=== PATIENT | female | born 1955 | race Caucasian/White ===

== ENCOUNTER 2020-11-30 05:32 | Day surgery (SDC) | payer OTHER, SELFPAY ==
[2020-11-23 07:53] VITALS: BMI 27.6
--- NOTE | 2020-11-30 | GASB_PTH ---
PATIENT: YOUNG SOARES LOC: EN U#:[id number] AGE/SX: 65/F ROOM: RE11/30/[address]: Dr. Efren Chen MD : 1955 BED: DIS: 11/30/2020 SPEC #: [id number] RECD: 11/30/20 11:32 STATUS: ANNY NARVAEZPete #: [id number] [place]: 11/30/20 00:[address]: Efren Chen DEPT: SURGICAL PATHOLOGY RECD BY: Rashad Walters ENTERED: 11/30/20 11:32 SP TYPE: Gastric Bx OTHR DR: Dr. Harriett Holland MD Tissues: A - Gastric mucous membrane B - Esophageal mucous membrane C - Esophageal mucous membrane D - Transverse colon Procedures: Special Stain Group I Surgery Specimen Level IV GMS Stain (control) HEADER OPERATION[place] [place] DIAGNOSIS: Positive colorectal cancer screening (Cologuard) TISSUE SUBMITTED: A - Antrum biopsy for H. pylori and path, B - Distal esophagus biopsy, C - Mid esophagus biopsy, D - Biopsy of distal transverse polyp MICROSCOPIC DIAGNOSIS A. Antrum, biopsy: Mild gastritis. See microscopic description and comment. B. Distal esophagus, biopsy: Fragments of squamous mucosa with focal ulceration, acute and chronic inflammation and granulation tissue reaction. See comment. C. Mid esophagus, biopsy: A fragment of squamous epithelium, no pathologic diagnosis. D. Distal transverse colon polyp, biopsy: Tubular adenoma. SJ:lanny 12/01/2020 COMMENT A. The results of immunohistochemistry for Helicobacter pylori will be reported separately ([id number]). B. Special stain for fungi is negative for organisms; matched control is appropriate. MICROSCOPIC DESCRIPTION Slides are reviewed. A. The specimen shows fragments of gastric mucosa with chronic inflammatory cell infiltrates in the lamina propria consisting of lymphocytes and plasma cells, consistent with mild chronic gastritis. GROSS DESCRIPTION A - Received in fixative is one container labeled with the patient's name and designated antrum biopsy. The specimen consists of one irregular fragment of light thomas soft tissue that measures 0.7 x 0.2 x 0.1 cm. The specimen is totally submitted in one cassette. B - Received in fixative is one container labeled with the patient's name and designated distal esophagus biopsy. The specimen consists of multiple irregular fragments of light thomas soft tissue that in aggregate measure 1 x 0.4 x 0.1 cm. The specimen is totally submitted in one cassette. C - Received in fixative is one container labeled with the patient's name and designated mid esophagus biopsy. The specimen consists of one irregular fragment of light thomas soft tissue that measures 0.4 x 0.4 x 0.1 cm. The specimen is totally submitted in one cassette. D - Received in fixative is one container labeled with the patient's name and designated biopsy distal transverse polyp. The specimen consists of one irregular fragment of light thomas soft tissue that measures 0.3 x 0.3 x 0.1 cm. The specimen is totally submitted in one cassette. / SJ:rg 11/30/20 TC:2 CPT: 23879 x4
[2020-11-30 06:04] VITALS: BP 151/97; PULSE 83; RESP 16; TEMP 36.8; O2SAT 97; BMI 27.1
[2020-11-30] MEDS: Lactated Ringers 1,000 ML 100 ML IV (06:10)
--- NOTE | 2020-11-30 06:19 | HP.PCM_ITS ---
History and Physical Date of Admission: 11/30/20 Intake Visit Reasons: CSCOPE, POSITIVE COLOGUARD Chief Complaint: positive cologuard Furniture Inspector Required: No Is patient in pain?: No Allergies No Known Allergies Allergy (Verified 11/23/20 07:54) Medications NK 11/23/20 [History Confirmed 11/23/20] Is last menstrual period known: No Post menopausal: Yes Patient : No PFSH Medical History (Updated 11/23/20 @ 08:[address] Efren Chen MD) GERD (gastroesophageal reflux disease) Osteoarthritis Surgical History (Updated 11/23/20 @ 07:51 by Lynn Mckeon) History of cholecystectomy Family History (Updated 11/23/20 @ 07:53 by Lynn Mckeon) Grandfather Heart disease Mother COPD (chronic obstructive pulmonary disease) Social History Smoking Status: Never smoker HPI HPI HPI: YOUNG SOARES, is a 65 F who presents to the office today for surgical consultation today. The patient is referred by Dr. Harriett Holland and a written copy my surgical consult recommendations were returned to her. The patient was urged by her daughter to seek routine medical evaluation and this included a Cologuard test which ended up being positive. The patient notes that she does have reasonably frequent reflux and heartburn. She does take Tums. She is not on any known anticoagulants but she does take oral supplements. This would include cayenne pepper and calcium. She is not sure where there is any anticoagulants associated with it. She has never had a colonoscopy. She has not noticed any bright red blood per rectum or melena. No change of weight other than slight increase over the past year. ROS General General: No weight change, appetite, fatigue, colon cancer, breast cancer or weakness HEENT HEENT: No difficulty swallowing, eye injury, eye surgery, swollen glands or hoarseness Endo Endocrine: No thyroid disease, diabetes mellitus, thyroid cancer, Hair loss, heat intolerance or cold intolerance Musc Musculoskeletal: Yes arthritis; No back problems, rheumatoid arthritis, gout or joint pain Cardio Cardiovascular: No murmur, pacemaker, heart disease, atrial fibrillation, high blood pressure, heart attack, heart stent, palpitations, shortness of breat with exertion or chest pain Psych Psychiatric: No depression, anxiety or hearing voices Resp Respiratory: No shortness of breath, No sleep apnea, No cough, No COPD, No asthma, No emphysema and No wheezing Gastro Gastrointestinal: No abdominal pain, No nausea or vomiting, No diarrhea, No constipation, No blood in stool, No acid reflux, No hemorrhoids, No ulcers, No gallbladder problem and No black,tarry stools [place]ud[place] Hematologic: No blood thinners, No blood disorders, No bleeding, No anemia and No blood clots Neuro Neurologic: No weakness Exam Const General: cooperative, healthy appearing, comfortable, no acute distress and well developed [facility] Head: normal to inspection Eyes General: appearance normal, both eyes and all related structures Resp Effort & Inspection: normal respiratory effort Auscultation: clear to auscultation bilaterally Cardio Rate: regular rate Rhythm: regular rhythm GI Palpation: soft and no hepatosplenomegaly Auscultation: normal bowel sounds Musc Cervical Spine: normal cervical lordosis Skin General: no rashes or lesions noted Neuro General: patient alert and patient awake Extrem General: no calf tenderness bilaterally Psych Affect: normal affect COVID (Procedure Consent) Procedure Criteria Procedure Criteria: Yes Elective The surgeon/proceduralist and patient have discussed in detail the risk of exposure to and/or potential harm posed by the COVID-19 virus with having a surgery/procedure at this time versus the risk of delaying the surgery/procedure. It is not possible to know either the risk of delaying the surgery or procedure or chance of getting an infection with perfect accuracy, but a joint decision was made between the patient and the surgeon/proceduralist to proceed at this time with the scheduled surgery/procedure as indicated on the consent form. Assessment and Plan Assessment and Plan (1) Positive colorectal cancer screening using Cologuard test: Status: Acute Plan Details Additional Comments: Cologuard positive. Symptoms that seem to correlate with gastroesophageal reflux disease. No personal history of colonoscopy. No family history of colon cancer. She does however use Tums for her abdominal discomfort. I recommend a esophagogastroduodenoscopy with possible biopsy and colonoscopy with possible biopsy or polypectomy as indicated. I have asked her to hold her supplements prior to the procedure. She is aware of the technique, benefit, risk, alternatives. She has had an opportunity to ask and have questions answered. We will schedule procedure at her discretion. I very much appreciate the kind opportunity of assisting with her surgical care. Copy: Dr. Harriett Chen M.D., F.A.C.S. I have re-examined the patient. There are no clinical changes since date of exam.
--- NOTE | 2020-11-30 06:30 | IMM_PTH ---
PATIENT: YOUNG SOARES LOC: EN U#:[id number] AGE/SX: 65/F ROOM: RE11/30/[address]: Dr. Efren Chen MD : 1955 BED: DIS: 11/30/2020 SPEC #: [id number] RECD: 11/30/20 12:25 STATUS: ANNY REQ #: [id number] [place]: 11/30/20 06:[address]: Efren Chen DEPT: IMMUNOHISTOCHEMISTRY RECD BY: Kanika Argueta ENTERED: 11/30/20 12:25 SP TYPE: IMMUNO OTHR DR: Dr. Harriett Holland MD Tissues: A - Stomach, NOS Procedures: H Pylori (initial) PHYSICIAN & INSTITUTION [place] [id number] SPECIMEN INFORMATION: Tissue Source: A ? Antrum biopsy Clinical Info: Positive colorectal cancer screening (Cologuard) Specimen Number: [id number] CPT code: 18423 METHODOLOGY: Deparaffinized sections of prefer/formalin-fixed tissue or PAP/DQ stained slides are incubated with monoclonal/polyclonal antibodies/oligonucleotide probes. Localization is made via biotin free immunoperoxidase method. Appropriate controls are performed and reacted as expected. Results on target cell population are indicated in the following table: RESULTS: ANTIBODY / CLONE RESULT Block A H Pylori (polyclonal) negative These tests were developed and their performance characteristics determined by [facility]. They may not have been cleared or approved by the U.S. Food and Drug Administration. The FDA has determined that such clearance or approval is not necessary. INTERPRETATION: A. Antrum biopsy: Negative for Helicobacter pylori organisms. SJ:lanny 12/01/2020
[2020-11-30 07:05] VITALS: BP 151/97; BP 92/53; PULSE 79; RESP 16; TEMP 35.9; O2SAT 97
--- NOTE | 2020-11-30 07:07 | OP.EGD_ITS ---
Patient Name: Ines Mora Procedure Date: 11/30/2020 6:07 AM Date of : 1955 Age: 65 Procedure: Upper GI endoscopy Indications: Cologuard positive Providers: Efren Chen MD Referring MD: Harriett Holland Medicines: See the Anesthesia note for documentation of the administered medications Complications: No immediate complications. Procedure: Pre-Anesthesia Assessment: - Prior to the procedure, a History and Physical was performed, and patient medications and allergies were reviewed. The patient's tolerance of previous anesthesia was also reviewed. The risks and benefits of the procedure and the sedation options and risks were discussed with the patient. All questions were answered, and informed consent was obtained. Prior Anticoagulants: The patient has taken no previous anticoagulant or antiplatelet agents. ASA Grade Assessment: II - A patient with mild systemic disease. After reviewing the risks and benefits, the patient was deemed in satisfactory condition to undergo the procedure. After obtaining informed consent, the endoscope was passed under direct vision. Throughout the procedure, the patient's blood pressure, pulse, and oxygen saturations were monitored continuously. The gastroscope was introduced through the mouth, and advanced to the second part of duodenum. The upper GI endoscopy was accomplished without difficulty. The patient tolerated the procedure well. Scope In: 6:34:04 AM Scope Out: 6:39:47 AM Total Procedure Duration Time 0 hours 5 minutes 43 seconds Findings: LA Grade A (one or more mucosal breaks less than 5 mm, not extending between tops of 2 mucosal folds) esophagitis with no bleeding was found 38 cm from the incisors. Biopsies were taken with a cold forceps for histology. The mid esophagus was normal. Biopsies were taken with a cold forceps for histology. A small hiatal hernia was present. Diffuse mildly erythematous mucosa without bleeding was found in the gastric antrum. Biopsies were taken with a cold forceps for histology. The examined duodenum was normal. Impression: - LA Grade A reflux esophagitis. Biopsied. - Normal mid esophagus. Biopsied. - Small hiatal hernia. - Erythematous mucosa in the antrum. Biopsied. - Normal examined duodenum. Recommendation: - Discharge patient to home. - Resume previous diet. - Continue present medications. - Await pathology results. - Use Prilosec (omeprazole) 20 mg PO daily. - Telephone my office for pathology results in 1 week. Procedure Code(s): --- Professional --- 28973, Esophagogastroduodenoscopy, flexible, transoral; with biopsy, single or multiple Diagnosis Code(s): --- Professional --- K21.0, Gastro-esophageal reflux disease with esophagitis K44.9, Diaphragmatic hernia without obstruction or gangrene K31.89, Other diseases of stomach and duodenum CPT copyright 2017 [employer]. All rights reserved. The codes documented in this report are preliminary and upon trombone slide assembler review may be revised to meet current compliance requirements. Efren Chen MD 11/30/2020 7:06:16 AM This report has been signed electronically. Number of Addenda: 0 Note Initiated On: 11/30/2020 6:07 AM
--- NOTE | 2020-11-30 07:07 | OP.CCLET_ITS ---
11/30/2020 Harriett Holland [place] [id number] [address] Re : Upper GI endoscopy procedure for Ines Mora Dear Dr. Holland This procedure was performed on Monday, November 30, 2020. My impressions and recommendations are as follows: Impressions : - LA Grade A reflux esophagitis. Biopsied. - Normal mid esophagus. Biopsied. - Small hiatal hernia. - Erythematous mucosa in the antrum. Biopsied. - Normal examined duodenum. Recommendations : - Discharge patient to home. - Resume previous diet. - Continue present medications. - Await pathology results. - Use Prilosec (omeprazole) 20 mg PO daily. - Telephone my office for pathology results in 1 week. My findings are described in the full procedure note, which is enclosed. If I can be of further assistance, please feel free to contact me at Doctor phone number(s): Work: . Sincerely, Efren Chen MD 11/30/2020 7:06:16 AM This report has been signed electronically.
--- NOTE | 2020-11-30 07:09 | OP.CCLET_ITS ---
11/30/2020 Harriett Holland [place] [id number] [address] Re : Colonoscopy procedure for Ines Mora Dear Dr. Holland This procedure was performed on Monday, November 30, 2020. My impressions and recommendations are as follows: Impressions : - Hemorrhoids found on perianal exam. - One 5 mm polyp in the distal transverse colon, removed with a cold biopsy forceps. Resected and retrieved. - The examination was otherwise normal. Recommendations : - Discharge patient to home. - Resume previous diet. - Continue present medications. - Repeat colonoscopy in 5 years for surveillance based on pathology results. - Telephone my office for pathology results in 1 week. My findings are described in the full procedure note, which is enclosed. If I can be of further assistance, please feel free to contact me at Doctor phone number(s): Work: . Sincerely, Efren Chen MD 11/30/2020 7:08:47 AM This report has been signed electronically.
--- NOTE | 2020-11-30 07:09 | OP.COLON_ITS ---
Patient Name: Ines Mora Procedure Date: 11/30/2020 6:40 AM Date of : 1955 Age: 65 Procedure: Colonoscopy Indications: Cologuard positive Providers: Efren Chen MD Referring MD: Harriett Holland Medicines: See the Anesthesia note for documentation of the administered medications Patient Profile: Last Colonoscopy: none. The patient's first colonoscopy is today. Complications: No immediate complications. Procedure: Pre-Anesthesia Assessment: - Prior to the procedure, a History and Physical was performed, and patient medications and allergies were reviewed. The patient's tolerance of previous anesthesia was also reviewed. The risks and benefits of the procedure and the sedation options and risks were discussed with the patient. All questions were answered, and informed consent was obtained. Prior Anticoagulants: The patient has taken no previous anticoagulant or antiplatelet agents. ASA Grade Assessment: II - A patient with mild systemic disease. After reviewing the risks and benefits, the patient was deemed in satisfactory condition to undergo the procedure. After I obtained informed consent, the scope was passed under direct vision. Throughout the procedure, the patient's blood pressure, pulse, and oxygen saturations were monitored continuously. The Colonoscope was introduced through the anus and advanced to the cecum, identified by appendiceal orifice and ileocecal valve. The colonoscopy was performed without difficulty. The patient tolerated the procedure well. The quality of the bowel preparation was good. The ileocecal valve and the appendiceal orifice were photographed. Scope In: 6:42:57 AM Scope Withdrawal Time 0 hours 7 minutes 58 seconds Scope Out: 7:00:43 AM Total Procedure Duration Time 0 hours 17 minutes 46 seconds Findings: Hemorrhoids were found on perianal exam. A 5 mm polyp was found in the distal transverse colon. The polyp was sessile. The polyp was removed with a cold biopsy forceps. Resection and retrieval were complete. The exam was otherwise without abnormality. Impression: - Hemorrhoids found on perianal exam. - One 5 mm polyp in the distal transverse colon, removed with a cold biopsy forceps. Resected and retrieved. - The examination was otherwise normal. Recommendation: - Discharge patient to home. - Resume previous diet. - Continue present medications. - Repeat colonoscopy in 5 years for surveillance based on pathology results. - Telephone my office for pathology results in 1 week. Procedure Code(s): --- Professional --- 02840, Colonoscopy, flexible; with biopsy, single or multiple Diagnosis Code(s): --- Professional --- K64.9, Unspecified hemorrhoids D12.3, Benign neoplasm of transverse colon (hepatic flexure or splenic flexure) CPT copyright 2017 [employer]. All rights reserved. The codes documented in this report are preliminary and upon drywall finisher foreman review may be revised to meet current compliance requirements. Efren Chen MD 11/30/2020 7:08:47 AM This report has been signed electronically. Number of Addenda: 0 Note Initiated On: 11/30/2020 6:40 AM
[2020-11-30 07:10] VITALS: BP 151/97; BP 86/64; PULSE 78; RESP 16; O2SAT 96
[2020-11-30 07:15] VITALS: BP 105/66; BP 151/97; PULSE 75; RESP 16; O2SAT 96
[2020-11-30 07:20] VITALS: BP 111/67; BP 151/97; PULSE 72; RESP 16; TEMP 35.9; O2SAT 98
[2020-11-30 08:00] VITALS: BP 151/97
== END 2020-11-30 08:10 | disposition home or self-care (01) ==
LOC: EN 05:33 → AC 05:35
PROVIDERS: PCP Family Medicine; Referring Provider Family Medicine; Visit Provider Surgery
PROC: 0DJD8ZZ Inspection of Lower Intestinal Tract, Via Natural or Artificial Opening Endoscopic (ICD-10-PCS; CPT 45378; principal; 2020-11-30 06:25)
DX: Z12.11 Encounter for screening for malignant neoplasm of colon (principal); K21.00 Gastro-esophageal reflux disease with esophagitis, without bleeding; K44.9 Diaphragmatic hernia without obstruction or gangrene; K31.89 Other diseases of stomach and duodenum; K64.9 Unspecified hemorrhoids; D12.3 Benign neoplasm of transverse colon; Z90.49 Acquired absence of other specified parts of digestive tract
CPT/HCPCS: 43239; 45380; 88305; 88312; 88342; J7120; J2405

== ENCOUNTER 2021-05-01 13:17 | Emergency (ER) | payer OTHER, SELFPAY ==
[2021-05-01 13:18] VITALS: BP 148/118; PULSE 84; RESP 22; TEMP 35.7; O2SAT 97; BMI 26.6
--- NOTE | 2021-05-01 14:01 | CT_ITS ---
STUDY: CT ABDOMEN AND PELVIS WITHOUT CONTRAST REASON FOR EXAM: Female, 66 years old. Left sided flank pain. RADIATION DOSAGE (If Supplied By Facility): CTDIvol = ( 8.45 ) mGy, DLP = ( 401.29 ) mGycm TECHNIQUE: Transaxial images were obtained from the dome of the diaphragm to the symphysis pubis without oral contrast, and without intravenous contrast. Sagittal and coronal images were reconstructed. Individualized dose optimization techniques were used for this CT. COMPARISON: None. FINDINGS: The visualized lung bases are unremarkable. The visualized portions of the heart are within normal limits. Prominence of the left lobe of the liver likely representing a normal variant. Calcification in the dome of the liver consistent with a granuloma. There is non-visualization of the gallbladder, which may be secondary to either contraction or a prior cholecystectomy. Small gallstones cannot be excluded. Normal spleen. Normal pancreas. Normal bilateral adrenal glands. Punctate nonobstructing stone in the right kidney measuring about 2 to 3 mm. Mild left hydronephrosis due to 6 mm in diameter and 7 mm in length stone in the proximal left ureter. There is a small hiatal hernia. Normal small intestine. Fecal retention. The descending colon is not well-distended. No evidence of acute diverticulitis. The appendix is visualized and appears normal. Tortuosity of the abdominal aorta without evidence of aneurysm. Normal inferior vena cava. Normal retroperitoneum. Normal urinary bladder. Normal abdominal wall. Narrowing of L5-S1 disc space with grade 1 anterolisthesis of L5 over S1 without evidence of spondylolysis. Degenerative changes. CT/Abdomen/Pelvis without Cont IMPRESSION: 1. Mild left hydronephrosis due to 6 x 7 mm stone in the proximal left ureter as described above. 2. Small punctate nonobstructing stone in the right kidney. Electronically Signed: Deangelo Bruno, at 14:46 EST Tel , Service support ,
--- NOTE | 2021-05-01 14:02 | EDS_ITS ---
HPI History of Present Illness Chief Complaint: Flank Pain Informant: patient Narrative Narrative: Patient started with abdominal pain about 11:00 this morning. She had no symptoms whatsoever prior to this. It started in the suprapubic area but then spread to the left lower quadrant and left flank. No change in urinalysis. When the pain is bad she gets nauseated but has not vomited. She has never had any symptoms like this before. No known history of kidney stones or diverticular disease. She has had a cholecystectomy in the past. Nothing specifically makes the pain better or worse. Denies chronic medical conditions Denies routine medications No allergies Surgeries cholecystectomy Lives with [facility] Medical History Alcohol use Back pain Blackout GERD (gastroesophageal reflux disease) Heartburn Non-smoker Restless legs Home Medications omeprazole 20 mg PO DAILY #90 cap 11/30/20 [Rx Last Taken Unknown] ondansetron 4 mg PO Q8H PRN #10 tab 05/01/21 [Rx Last Taken Unknown] oxycodone-acetaminophen [Percocet] 1 tab PO Q6H PRN 3 Days #12 tab 05/01/21 [Rx Last Taken Unknown] tamsulosin [Flomax] 0.4 mg PO DAILY #10 cap 05/01/21 [Rx Last Taken Unknown] Allergy/AdvReac Type Severity Reaction Status Date / Time No Known Allergies Allergy Verified 05/01/21 13:17 Family History Grandfather Heart disease Mother COPD (chronic obstructive pulmonary disease) Surgical History History of cholecystectomy Social History Smoking Status: Never smoker ROS ROS ED Constitutional Constitutional ED: Denies chills or fever(s) Eyes Eyes: Denies blurry vision ENT ENT ED: Denies rhinorrhea or sore throat Cardiovascular Cardiovascular: Denies chest pain Respiratory/Chest Respiratory/Chest: Denies cough, dyspnea or sputum Gastrointestinal Gastrointestinal: Reports abdominal pain and nausea; Denies constipation, diarrhea, melena or vomiting Genitourinary Genitourinary ED: Denies dysuria, hematuria or urinary frequency Musculoskeletal Musculoskeletal: Denies back pain or myalgias Integumentary Denies rash Neurologic Neurologic: Denies paresthesias or weakness Psychiatric Psychiatric: Denies depression Endocrine Endocrinology: Denies polydipsia or polyuria Allergic/Immunologic Allergic/Immunologic ED: Denies urticaria EXAM Physical Exam Const Vital Signs: 05/01/21 13:18 05/01/21 14:09 05/01/21 14:47 Temperature 96.2 F L Temperature Source Temporal Pulse Rate 84 77 80 Respiratory Rate 22 H 14 16 Blood Pressure 148/118 H 180/88 H 151/80 H Blood Pressure Mean 128 118 103 Pulse Ox 97 98 96 Oxygen Delivery Method Room Air Room Air Room Air Patient does look a little uncomfortable. She tends to be moving a little bit [id number] in bed. Positive well nourished and well developed General Appearance ED: well developed HEENT Reports moist mucous membranes Negative for trauma or tenderness Eyes General Eye ED: Negative for pale conjunctiva or scleral icterus Neck no JVD Chest Wall inspection of chest normal Resp normal respiratory effort and clear to auscultation bilaterally Auscultation: Negative for rales, rhonchi or wheezes Cardio regular rate and regular rhythm GI normal to inspection, nondistended, normoactive bowel sounds GI Narrative: Patient does have some tenderness toward the left lower quadrant but no rebound or guarding. I feel no mass. She does not have as much CVA tenderness though. Palpation: soft Back/Spine no CVA tenderness Extremity normal to inspection General Extremety ED: Negative for tenderness Neuro oriented x3 Sensorium / Orientation: alert Psych mental status grossly normal Skin no rashes or lesions noted and no wounds MDM MDM MDM Narrative Medical decision making narrative: Blood work showed normal CBC. Electrolytes show minimally decreased potassium. She also had very slight elevation of glucose at 159. Urine showed no sign of infection. CT scan showed a 6 x 7 mm stone in proximal left UVJ. Patient was given morphine initially. She is also given Zofran. She was still having pain. We gave her a second dose of morphine and Toradol. She still having discomfort and actually vomited again. I will add some Phenergan and Dilaudid to see if we get her pain under control. I would like to try to get her home. However, if I cannot get her pain under control and nausea under control she might need to be admitted for management. Lab Data Attestation: I reviewed the patient's lab results. Labs: Laboratory Results - last 24 hr 05/01/21 05/01/21 05/01/21 13:30 13:30 13:30 WBC 8.3 RBC 4.72 Hgb 14.6 Hct 43.2 MCV 91.5 MCH 30.9 MCHC 33.8 RDW Std Deviation 40.6 RDW Coeff of Darvin 12.1 Plt Count 276 MPV 9.9 Immature Gran % (Auto) 0.700 Neut % (Auto) 77.9 H Lymph % (Auto) 16.0 L Travis % (Auto) 4.2 Eos % (Auto) 0.7 Baso % (Auto) 0.5 Absolute Neuts (auto) 6.4 Absolute Lymphs (auto) 1.32 Nucleated RBC % 0 Sodium 140 Potassium 3.2 L Chloride 105 Carbon Dioxide 26.0 Anion Gap 9 BUN 11 Creatinine 0.78 Estim Creat Clear Calc 49.12 Est GFR (MDRD) Af Amer 95 Est GFR (MDRD) Non-Af 79 BUN/Creatinine Ratio 14.1 Glucose 159 H Calcium 9.2 Urine Color Yellow Urine Clarity Clear Urine pH 8.0 Ur Specific Watkins 1.015 Urine Protein 15 H Urine Glucose (UA) 50 H Urine Ketones Negative Urine Occult Blood 150 H Urine Nitrite Negative Urine Bilirubin Negative Urine Urobilinogen Normal Ur Leukocyte Esterase Negative Urine RBC 0-5 SEEN Urine WBC 0 SEEN Ur Squamous Epith Cells 0 SEEN Urine Bacteria 0 SEEN Urine Mucus 0 SEEN Radiography Diagnostic Testing: Clinical Impression(s) from Imaging Studies Abdomen/Pelvis CT 05/01/21 14:01 IMPRESSION: 1. Mild left hydronephrosis due to 6 x 7 mm stone in the proximal left ureter as described above. 2. Small punctate nonobstructing stone in the right kidney. Electronically Signed: Deangelo Bruno, at 14:46 EST Tel , Service support , Discharge Plan Triage Chief Complaint: Flank Pain ED Provider: Wang Arroyo Dx/Rx/DC Orders Clinical Impression: Kidney stone on left side Instructions: ED Kidney Stone w/ Colic Prescriptions: New oxycodone-acetaminophen [Percocet] 5-325 mg tablet 1 tab PO Q6H PRN (Reason: pain) 3 Days Qty: 12 RF: 0 ondansetron 4 mg tablet,disintegrating 4 mg PO Q8H PRN (Reason: nausea and vomiting) Qty: 10 RF: 0 tamsulosin [Flomax] 0.4 mg capsule 0.4 mg PO DAILY Qty: 10 RF: 0 No Action omeprazole 20 mg capsule,delayed release(DR/EC) 20 mg PO DAILY Qty: 90 RF: 0 Primary Care Provider: Harriett Holland Referrals: Harriett Holland MD [Primary Care Provider] - Delfina Jade MD [STAFF PHYSICIAN] - As soon as possible Disposition Disposition: Home, Self Care
[2021-05-01 14:06] LABS: Bacteria 0 SEEN /hpf (None Seen); Mucous, Urine 0 SEEN /hpf (<or=2+); Squamous Epithelial Cells - UA 0 SEEN /hpf (5-10); White Blood Cells 0 SEEN /hpf (0-5)
[2021-05-01 14:07] LABS: Absolute Lymphocyte Count 1.32 X10^3/uL (0.83-4.51); Absolute Neutrophil Count 6.4 X10^3/uL (2.0-7.7); Basophil# 0.04 X10^3/uL; Basophil% 0.5 % (0-1); Color, Urine Yellow (Yellow); Eosinophil# 0.06 X10^3/uL; Eosinophils% 0.7 % (0-5); Glucose, Dipstick 50 mg/dl (Normal); Hematocrit 43.2 % (37-47); Hemoglobin 14.6 g/dL (12.0-15.0); Ketone-Dipstick Negative (Negative); Leukocyte Esterase-Dipstick Negative /ul (Negative); Lymphocyte # 1.32 X10^3/ul (0.83-4.51); Mean Corp Hgb Conc 33.8 g/dL (32-36); Mean Corpuscular Hgb 30.9 pg (27.0-32.0); Mean Corpuscular Volume 91.5 fL (81-99); Mean Platelet Vol. 9.9 fl (6.2-12.0); Monocyte# 0.35 X10^3/uL; Monocyte% 4.2 % (0-10); NRBC Flagged by Analyzer 0 % (0-5); Neutrophil # 6.44 X10^3/uL (2.7-7.7); Neutrophil % 77.9 % (47-70); Nitrite-Dipstick Negative (Negative); Occult Blood-Urine 150 /ul (Negative); Platelet Count 276 K/mm3 (150-450); Protein-Dipstick 15 mg/dl (Negative); RBC Distribution Width CV 12.1 % (11.6-14.6); RBC Distribution Width SD 40.6 fl (35.1-43.9); Red Blood Count 4.72 M/mm3 (4.2-5.4); Specific Gravity, Urine 1.015 (1.002-1.030); Urine Bilirubin Dipstick Negative (Negative); Urine Clarity Clear (Clear); Urine Urobilinogen Normal (Normal); White Blood Count 8.3 K/mm3 (4.4-11.0)
[2021-05-01] MEDS: Morphine 4 MG/ML Syringe IV ×2 (14:07→15:01)
[2021-05-01] MEDS: Ondansetron 4 MG/2 ML Vial IV (14:07)
[2021-05-01] MEDS: 0.9% Normal Saline 1,000 ML 1000 ML IV (14:08)
[2021-05-01 14:09] VITALS: BP 180/88; PULSE 77; RESP 14; O2SAT 98
[2021-05-01 14:13] LABS: Red Blood Cells-Urine 0-5 SEEN /hpf (0-5)
[2021-05-01 14:19] LABS: Anion Gap 9 (5-15); BUN 11 mg/dL (7-18); BUN/Creat Ratio 14.1 RATIO (10-20); Calcium,Total 9.2 mg/dL (8.5-10.1); Chloride 105 mmol/L (98-107); Creatinine, Serum 0.78 mg/dL (0.55-1.02); EST Glomerular Filtration Rate 79 mL/min (>60); Est Glom Filt Rate - Afr Amer 95 mL/min (>60); Estimated Creatinine Clearance 49.12 ml/min; Glucose 159 mg/dL (74-106); Potassium 3.2 mmol/L (3.5-5.1); Sodium Level 140 mmol/L (136-145)
[2021-05-01 14:47] VITALS: BP 151/80; PULSE 80; RESP 16; O2SAT 96
[2021-05-01] MEDS: Ketorolac 15 MG/ML Vial IV (15:01)
[2021-05-01] MEDS: HYDROmorphone 0.5 MG/0.5 ML SYRINGE IV (15:47)
[2021-05-01] MEDS: proMETHazine 25 MG/ML Syringe 12.5 MG IM (15:47)
[2021-05-01 16:47] VITALS: O2SAT 96
== END 2021-05-01 16:50 | disposition home or self-care (01) ==
PROVIDERS: Emergency Provider Emergency Medicine; PCP Family Medicine
DX: N13.2 Hydronephrosis with renal and ureteral calculous obstruction (principal); K21.9 Gastro-esophageal reflux disease without esophagitis; Z90.49 Acquired absence of other specified parts of digestive tract
CPT/HCPCS: 74176; 80048; 81001; 85025; 96361; 96372; 96374; 96375; 96376; 99283; J7030; J7050; A4216; J2405

== ENCOUNTER → 2021-05-03 10:52 | Outpatient (CLI) | payer OTHER, SELFPAY ==
--- NOTE | 2021-05-03 11:00 | RAD_ITS ---
HISTORY: L STONE. TECHNIQUE: XR Abdomen 1 View. # of images incl. paperwork: 2. COMPARISON: CT 05/01/2021. FINDINGS: BOWEL GAS PATTERN: No dilated small bowel loops. Gaseous and stool distention of the colon. FREE AIR: Not assessed on supine view. CALCIFICATIONS: 5 mm ureteral calculus at the L4 level again noted. Left pelvic phlebolith again seen. OSSEOUS STRUCTURES: Unremarkable. RAD/Abdomen Single View IMPRESSION: Left ureteral calculus again seen. at 0820 Reported and signed by: Barbie Rodriguez MD Electronically Signed: Barbie Rodriguez MD at 8:19 EST Tel , Service support ,
== END ==
PROVIDERS: PCP Family Medicine; Referring Provider Urology; Visit Provider Urology
DX: N20.0 Calculus of kidney (principal)
CPT/HCPCS: 74018

== ENCOUNTER 2021-05-04 05:37 | Day surgery (SDC) | payer OTHER, SELFPAY ==
[2021-05-04 06:06] VITALS: BP 124/72; PULSE 91; RESP 18; TEMP 36.1; O2SAT 95; BMI 27.8
[2021-05-04] MEDS: Lactated Ringers 1,000 ML 15 ML IV (06:09)
--- NOTE | 2021-05-04 07:22 | PCM.OPRPT ---
Problems Associated Problem List Diagnoses (1) Ureteral calculus, left: (2) Hydronephrosis: Report of Operation Date of Procedure: 05/04/21 Pre-Operative Diagnosis: left ureteral calculus with hydronephrosis Post-Operative Diagnosis: same Surgery/Procedure Performed:: cystoscopy with left ureteral stent insertion, left extracorporeal shockwave lithotripsy Surgeon: Delfina Jade Type of Anesthesia: General Description of Procedure: The patient is a 66yo female evaluated and found to have a 7mm left proximal ureteral stone with hydronephrosis. She now presents for definitive surgical management. Informed consent was obtained. The patient was taken to the operating room and placed on the lithotriptor table. She was appropriately padded in dependent areas. Anesthesia monitored the head, neck, airway, IV access and vital signs throughout the case. Once anesthesia was appropriately administered, the patient was placed into dorsal lithotomy position and was prepped and draped in usual sterile fashion. The cystoscope was inserted through the urethra into the urinary bladder under direct visualization. The bladder mucosa was visualized in its entirety and was found to be without mass, erythema or other abnormality. The left ureteral orifice was identified and intubated with a 0.035 glidewire that was easily advanced to the renal pelvis as seen on fluoroscopy. The 6x26 JJ stent was placed over the wire with good positioning in the renal pelvis as well as the urinary bladder. The bladder was emptied and the cystoscope was removed. The patient was repositioned and the stone was easily seen in the ureter. Shocks were systematically applied to the stone and it appeared to be well fragmented at the conclusion of the procedure. The patient was awakened and taken to the recovery room in good condition. There were no complications during this procedure. Grafts/Implants Used: 6x26 JJ stent Complications none Admit VTE Documentation VTE Present on Admission: Yes VTE Mechan Device Prophylaxis: SCD's VTE Pharm Prophylaxis ordered?: No Reason prophylaxis not ordered:: Treatment Not Indicated
--- NOTE | 2021-05-04 07:24 | PCM.DC ---
Discharge Instructions Diet Discharge Diet: No restrictions Activity May resume sexual activity in: No Restrictions Lifting Restrictions: none Dressing / Incision Call your doctor if you observe: Fever of 101 or Higher, Inability to urinate, Inability to have a bowel movement and Uncontrolled pain Follow Up Care Please Follow Up With: Delfina Jade MD When: in 2-3 weeks with [facility] first Test Results: Test results from this visit will be discussed in further detail at your follow-up appointment, if applicable. Discharge Plan Admission Attending Provider: Delfina Jade Primary Care Provider: Harriett Holland Discharge Orders/Prescriptions Prescriptions: New oxycodone-acetaminophen [oxycodone-acetaminophen] 1 TABLET tablet 2 tab PO Q8H PRN PRN (Reason: Pain) 7 Days Qty: 20 RF: 0 cephalexin [cephalexin] 500 MG capsule 500 mg PO Q12 3 Days Qty: 6 RF: 0 phenazopyridine [Pyridium] 200 MG tablet 200 mg PO TID PRN PRN (Reason: Bladder Spasms) 7 Days Qty: 30 RF: 0 Continued omeprazole 20 mg capsule,delayed release(DR/EC) 20 mg PO DAILY Qty: 90 RF: 0 ondansetron 4 mg tablet,disintegrating 4 mg PO Q8H PRN (Reason: nausea and vomiting) Qty: 10 RF: 0 Discontinued oxycodone-acetaminophen [Percocet] 5-325 mg tablet 1 tab PO Q6H PRN (Reason: pain) 3 Days Qty: 12 RF: 0 tamsulosin [Flomax] 0.4 mg capsule 0.4 mg PO DAILY Qty: 10 RF: 0 Referrals / Follow Up: Harriett Holland MD [Primary Care Provider] - Disposition Disposition (needs filled in before D/C Order can be placed): Home, Self Care
[2021-05-04] MEDS: Cefazolin 2 GM in 0.9% Normal Saline 100 ML IV (07:25)
[2021-05-04 08:32] VITALS: BP 124/72; PULSE 91; RESP 14; TEMP 36; O2SAT 90
[2021-05-04 08:45] VITALS: BP 124/72; BP 126/71; PULSE 86; RESP 16; O2SAT 95
[2021-05-04 09:01] VITALS: BP 123/71; BP 124/72; PULSE 90; RESP 16; TEMP 36.3; O2SAT 95
[2021-05-04 09:27] VITALS: BP 124/72
== END 2021-05-04 10:14 | disposition home or self-care (01) ==
LOC: SDC 05:38 → AC 05:38
PROVIDERS: PCP Family Medicine; Referring Provider Urology; Visit Provider Urology
PROC: (CPT 50590; principal; 2021-05-04 07:05)
DX: N13.2 Hydronephrosis with renal and ureteral calculous obstruction (principal); G25.81 Restless legs syndrome; K21.9 Gastro-esophageal reflux disease without esophagitis; Z87.442 Personal history of urinary calculi; N39.46 Mixed incontinence
CPT/HCPCS: 50590; 52332; J7120; C2617; J2405

== ENCOUNTER → 2021-05-25 17:04 | Outpatient (CLI) | payer OTHER, SELFPAY | PROVIDERS: PCP Family Medicine; Visit Provider Family Medicine | DX: N39.0 Urinary tract infection, site not specified (principal) | CPT/HCPCS: 87086; 87088 ==

== ENCOUNTER 2021-06-25 16:36 | Outpatient (CLI) | payer OTHER, SELFPAY ==
[2021-06-25 17:55] LABS: Calcium,Total 9.4 mg/dL (8.5-10.1)
== END 2021-06-25 23:59 | disposition short-term general hospital (02) ==
LOC: MTLAB 16:38
PROVIDERS: PCP Family Medicine; Referring Provider Urology; Visit Provider Urology
DX: E83.52 Hypercalcemia (principal)
CPT/HCPCS: 36415; 82310

== ENCOUNTER → 2021-10-13 | Outpatient (CLI) | payer OTHER, SELFPAY ==
--- NOTE | 2021-10-13 08:44 | BI_ITS ---
MAMMOGRAPHY - UNILATERAL DIAGNOSTIC: LEFT BREAST REASON FOR EXAM: Female, 66 years old. Abnormal screening mammogram. PERTINENT HISTORY: Non-contributory. TECHNIQUE: Compression spot view of the left breast was obtained in the craniocaudad ejection. CAD: Full Field Digital Mammography with Computer Added Detection was performed. COMPARISON: Comparison is made with prior outside examination dated 10/07/2021. FINDINGS: Breast Composition: The breasts are heterogeneously dense, which may obscure small masses. There are no dominant masses or suspicious calcifications. No other significant abnormalities are identified. BI/DIAG MAMM W/CAD, UNILAT IMPRESSION: Negative unilateral diagnostic mammogram. Correlation with ultrasound is recommended. ASSESSMENT CATEGORY: BIRADS Category 0: Incomplete. Need additional imaging evaluation. A letter regarding these results will be sent to the patient by the facility within 30 days. Approximately 10% of breast cancers are not detected by mammography. A normal mammogram should not delay biopsy of a clinically suspicious abnormality. Electronically Signed: Brandon Barbour MD at 10:12 EDT ,
--- NOTE | 2021-10-13 08:44 | US_ITS ---
STUDY: ULTRASOUND BREAST - LEFT REASON FOR EXAM: Female, 66 years old. Abnormal screening mammogram. TECHNIQUE: Axial and longitudinal images of the LEFT breast were performed with a high resolution ultrasound transducer. # OF IMAGES: 17 COMPARISON: Comparison is made with prior mammogram done earlier today as well as outside mammogram dated 10/07/2021. FINDINGS: LEFT Breast: The retroareolar region was examined by ultrasound. There is evidence of dilated retroareolar ducts. US/Breast Limited Unilateral IMPRESSION: Dilated retroareolar ducts. ASSESSMENT CATEGORY: BIRADS Category 2: Benign. A letter regarding these results will be sent to the patient by the facility within 30 days. Electronically Signed: Brandon Barbour MD at 10:12 EDT ,
== END | disposition home or self-care (01) ==
LOC: OPBI 08:42
PROVIDERS: PCP Family Medicine; Visit Provider Family Medicine
DX: R92.8 Other abnormal and inconclusive findings on diagnostic imaging of breast (principal)
CPT/HCPCS: 76642; 77065

== ENCOUNTER → 2021-11-06 | Outpatient (CLI) | payer OTHER, SELFPAY ==
[2021-11-06 11:04] LABS: Cholesterol 212 mg/dL (200); Glucose 117 mg/dL (74-106); High Density Lipoprotein 52 mg/dL; Triglycerides 132 mg/dL; Very Low Density Lipoprotein 26 mg/dL (5-40)
== END | disposition home or self-care (01) ==
LOC: LAB 09:13
PROVIDERS: PCP Family Medicine; Referring Provider Family Medicine; Visit Provider Family Medicine
DX: Z00.00 Encounter for general adult medical examination without abnormal findings (principal)
CPT/HCPCS: 36415; 80061; 82947

== ENCOUNTER → 2022-10-28 | Outpatient (CLI) | payer OTHER, SELFPAY ==
[2022-10-28 12:14] LABS: Absolute Lymphocyte Count 1.08 X10^3/uL (0.83-4.51); Absolute Neutrophil Count 3.5 X10^3/uL (2.0-7.7); Basophil# 0.03 X10^3/uL; Basophil% 0.6 % (0-1); Eosinophil# 0.23 X10^3/uL; Eosinophils% 4.4 % (0-5); Hematocrit 43.4 % (37-47); Hemoglobin 14.1 g/dL (12.0-15.0); Lymphocyte # 1.08 X10^3/ul (0.83-4.51); Lymphocyte % 20.8 % (19-41); Mean Corp Hgb Conc 32.5 g/dL (32-36); Mean Corpuscular Hgb 30.4 pg (27.0-32.0); Mean Corpuscular Volume 93.5 fL (81-99); Mean Platelet Vol. 10.5 fl (6.2-12.0); Monocyte# 0.32 X10^3/uL; Monocyte% 6.2 % (0-10); NRBC Flagged by Analyzer 0 % (0-5); Neutrophil % 67.4 % (47-70); Platelet Count 262 K/mm3 (150-450); RBC Distribution Width CV 12.5 % (11.6-14.6); RBC Distribution Width SD 43.1 fl (35.1-43.9); Red Blood Count 4.64 M/mm3 (4.2-5.4); White Blood Count 5.2 K/mm3 (4.4-11.0)
[2022-10-28 13:00] LABS: ALB/GLOB Ratio 1.1 RATIO (0.9-2.4); AST(SGOT) 21 U/L (15-37); Alanine Aminotransfer ALT/SGPT 33 U/L (13-56); Albumin, Serum 3.8 g/dL (3.2-5.0); Alkaline Phosphatase 107 U/L (45-117); Anion Gap 7 (5-15); BUN 16 mg/dL (7-18); BUN/Creat Ratio 24.7 RATIO (10-20); Calcium,Total 9.2 mg/dL (8.5-10.1); Chloride 107 mmol/L (98-107); Cholesterol 184 mg/dL (200); Creatinine, Serum 0.65 mg/dL (0.55-1.02); EST Glomerular Filtration Rate 97 mL/min (>60); Est Glom Filt Rate - Afr Amer 117 mL/min (>60); Globulin 3.4 g/dL (2.2-4.2); Glucose 94 mg/dL (74-106); High Density Lipoprotein 53 mg/dL; Potassium 3.9 mmol/L (3.5-5.1); Protein, Total 7.2 g/dL (6.4-8.2); Sodium Level 142 mmol/L (136-145); Triglycerides 167 mg/dL; Very Low Density Lipoprotein 33 mg/dL (5-40)
[2022-10-28 13:10] LABS: Hemoglobin A1c 5.8 % (3.8-5.6)
== END | disposition home or self-care (01) ==
LOC: BFHLAB 08:28
PROVIDERS: PCP Family Medicine; Referring Provider Family Medicine; Visit Provider Family Medicine
DX: Z00.00 Encounter for general adult medical examination without abnormal findings (principal); R73.01 Impaired fasting glucose; E78.5 Hyperlipidemia, unspecified
CPT/HCPCS: 36415; 80053; 80061; 83036; 85025

== ENCOUNTER → 2023-11-10 | Outpatient (CLI) | payer MEDICARE, SELFPAY ==
[2023-11-10 15:42] LABS: Absolute Lymphocyte Count 1.09 X10^3/uL (0.83-4.51); Absolute Neutrophil Count 2.6 X10^3/uL (2.0-7.7); Basophil# 0.05 X10^3/uL; Basophil% 1.2 % (0-1); Eosinophil# 0.16 X10^3/uL; Eosinophils% 3.8 % (0-5); Hematocrit 46.4 % (37-47); Hemoglobin 15.1 g/dL (12.0-15.0); Lymphocyte # 1.09 X10^3/ul (0.83-4.51); Lymphocyte % 25.9 % (19-41); Mean Corp Hgb Conc 32.5 g/dL (32-36); Mean Corpuscular Hgb 29.8 pg (27.0-32.0); Mean Corpuscular Volume 91.5 fL (81-99); Mean Platelet Vol. 11.1 fl (6.2-12.0); Monocyte# 0.26 X10^3/uL; Monocyte% 6.2 % (0-10); NRBC Flagged by Analyzer 0 % (0-5); Neutrophil # 2.64 X10^3/uL (2.7-7.7); Neutrophil % 62.7 % (47-70); Platelet Count 249 K/mm3 (150-450); RBC Distribution Width SD 40.2 fl (35.1-43.9); Red Blood Count 5.07 M/mm3 (4.2-5.4); White Blood Count 4.2 K/mm3 (4.4-11.0)
[2023-11-10 16:40] LABS: Hemoglobin A1c 5.7 % (3.8-5.6)
== END | disposition home or self-care (01) ==
PROVIDERS: PCP Family Medicine; Referring Provider Family Medicine; Visit Provider Family Medicine
DX: Z00.00 Encounter for general adult medical examination without abnormal findings (principal); R73.01 Impaired fasting glucose; E78.5 Hyperlipidemia, unspecified
CPT/HCPCS: 36415; 83036; 85025

== ENCOUNTER → 2023-11-21 | Outpatient (CLI) | payer MEDICARE, SELFPAY ==
--- NOTE | 2023-11-21 13:59 | BI_ITS ---
MAMMOGRAPHY - BILATERAL SCREENING REASON FOR EXAM: Female, 68 years old. Routine annual screening examination. PERTINENT HISTORY: Non-contributory. TECHNIQUE: Digital bilateral breast héctor (3D mammographic acquisition) in the CC and MLO projections. 2-D mediolateral oblique (MLO) and craniocaudad (CC) views of both breasts were obtained. CAD: Full Field Digital Mammography with Computer Added Detection was performed. COMPARISON: Comparison is made with prior outside examination dated October 07, 2021 and October 13, 2021. FINDINGS: Breast Composition: The breasts are heterogeneously dense, which may obscure small masses. There are no dominant masses or suspicious calcifications. Stable bilateral fat containing axillary lymph nodes. No other significant abnormalities are identified. There has been no significant change since the prior study. BI/SCRN MAMM (CAD)W/HÉCTOR BILAT IMPRESSION: Stable bilateral screening mammogram. Yearly follow-up mammogram recommended. (A) ASSESSMENT CATEGORY: BIRADS Category 2: Benign. A letter regarding these results will be sent to the patient by the facility within 30 days. Approximately 10% of breast cancers are not detected by mammography. A normal mammogram should not delay biopsy of a clinically suspicious abnormality. [id number] Electronically Signed: Brandon Barbour MD at 8:23 EDT ,
== END | disposition home or self-care (01) ==
LOC: OPBI 13:57
PROVIDERS: PCP Family Medicine; Referring Provider Family Medicine; Visit Provider Family Medicine
DX: Z12.31 Encounter for screening mammogram for malignant neoplasm of breast (principal)
CPT/HCPCS: 77063; 77067

== ENCOUNTER → 2024-01-23 | Outpatient (CLI) | payer MEDICARE, SELFPAY ==
[2024-01-23 10:41] LABS: Absolute Lymphocyte Count 1.13 X10^3/uL (0.83-4.51); Absolute Neutrophil Count 4.1 X10^3/uL (2.0-7.7); Basophil# 0.04 X10^3/uL; Basophil% 0.7 % (0-1); Eosinophil# 0.14 X10^3/uL; Eosinophils% 2.5 % (0-5); Hematocrit 43.6 % (37-47); Hemoglobin 14.2 g/dL (12.0-15.0); Lymphocyte # 1.13 X10^3/ul (0.83-4.51); Lymphocyte % 19.9 % (19-41); Mean Corp Hgb Conc 32.6 g/dL (32-36); Mean Corpuscular Hgb 29.8 pg (27.0-32.0); Mean Corpuscular Volume 91.4 fL (81-99); Mean Platelet Vol. 10.3 fl (6.2-12.0); Monocyte# 0.26 X10^3/uL; Monocyte% 4.6 % (0-10); NRBC Flagged by Analyzer 0 % (0-5); Neutrophil # 4.11 X10^3/uL (2.7-7.7); Neutrophil % 72.1 % (47-70); Platelet Count 240 K/mm3 (150-450); RBC Distribution Width CV 12.3 % (11.6-14.6); RBC Distribution Width SD 41.1 fl (35.1-43.9); Red Blood Count 4.77 M/mm3 (4.2-5.4); White Blood Count 5.7 K/mm3 (4.4-11.0)
[2024-01-23 11:27] LABS: ALB/GLOB Ratio 1.1 RATIO (0.9-2.4); AST(SGOT) 14 U/L (15-37); Alanine Aminotransfer ALT/SGPT 24 U/L (13-56); Albumin, Serum 3.6 g/dL (3.2-5.0); Alkaline Phosphatase 123 U/L (45-117); Anion Gap 5 (5-15); BUN 11 mg/dL (7-18); BUN/Creat Ratio 18.2 RATIO (10-20); Calcium,Total 9.1 mg/dL (8.5-10.1); Chloride 109 mmol/L (98-107); Cholesterol 165 mg/dL (200); Creatinine, Serum 0.61 mg/dL (0.55-1.02); EST Glomerular Filtration Rate 104 mL/min (>60); Est Glom Filt Rate - Afr Amer 126 mL/min (>60); Globulin 3.2 g/dL (2.2-4.2); Glucose 95 mg/dL (74-106); High Density Lipoprotein 53 mg/dL; Potassium 3.9 mmol/L (3.5-5.1); Protein, Total 6.8 g/dL (6.4-8.2); Sodium Level 142 mmol/L (136-145); Triglycerides 128 mg/dL; Very Low Density Lipoprotein 26 mg/dL (5-40)
[2024-01-23 12:36] LABS: Hemoglobin A1c 5.3 % (3.8-5.6)
== END | disposition home or self-care (01) ==
LOC: LAB 09:40
PROVIDERS: PCP Family Medicine; Referring Provider Family Medicine; Visit Provider Family Medicine
DX: Z00.00 Encounter for general adult medical examination without abnormal findings (principal); R73.01 Impaired fasting glucose; E78.5 Hyperlipidemia, unspecified
CPT/HCPCS: 36415; 80053; 80061; 83036; 85025

== ENCOUNTER → 2025-02-28 | Outpatient (CLI) | payer MEDICARE, SELFPAY ==
[2025-02-28 12:31] LABS: Hematocrit 43.2 % (37-47); Hemoglobin 14.6 g/dL (12.0-15.0); Immature Granulocytes Count 0.010 X10^3/uL (0.0-0.0); Mean Corp Hgb Conc 33.8 g/dL (32-36); Mean Corpuscular Volume 90.6 fL (81-99); Mean Platelet Vol. 10.5 fl (6.2-12.0); NRBC Flagged by Analyzer 0 % (0-5); Platelet Count 253 K/mm3 (150-450); RBC Distribution Width CV 12.1 % (11.6-14.6); RBC Distribution Width SD 40.2 fl (35.1-43.9); Red Blood Count 4.77 M/mm3 (4.2-5.4); White Blood Count 5.3 K/mm3 (4.4-11.0)
[2025-02-28 13:07] LABS: AST(SGOT) 21 U/L (<=31); Alanine Aminotransfer ALT/SGPT 24 U/L (<=34); Albumin, Serum 3.8 g/dL (3.4-4.8); Alkaline Phosphatase 99 U/L (35-104); Anion Gap 12 (5-15); BUN 7 mg/dL (4-19); BUN/Creat Ratio 10.8 RATIO (10-20); Calcium,Total 9.4 mg/dL (7.6-11.0); Carbon Dioxide 26.9 mmol/L (21.0-32.0); Chloride 104 mmol/L (98-108); Cholesterol 217 mg/dL (<=200); Globulin 1.4 g/dL (2.2-4.2); Glucose 90 mg/dL (70-99); Low Density Lipoprotein Calc. 153 mg/dL; Potassium 3.8 mmol/L (3.3-5.1); Triglycerides 85 mg/dL; Very Low Density Lipoprotein 17 mg/dL (5-40); cholesterol:hdl ratio screen 4.58
== END | disposition home or self-care (01) ==
LOC: MTLAB 09:46
PROVIDERS: PCP Family Medicine; Referring Provider Family Medicine; Visit Provider Family Medicine
DX: Z00.00 Encounter for general adult medical examination without abnormal findings (principal); R73.01 Impaired fasting glucose; E78.5 Hyperlipidemia, unspecified
CPT/HCPCS: 36415; 80053; 80061; 83036; 85025

== ENCOUNTER → 2025-03-11 | Outpatient (CLI) | payer MEDICARE, SELFPAY ==
--- NOTE | 2025-03-11 12:29 | BI_ITS ---
EXAM: SCRN MAMM (CAD)W/HÉCTOR BILAT DATE: 03/11/2025 CLINICAL HISTORY: F, Age 70 y/o , SCREENING No family history. TECHNIQUE: Procedure Code: [id number] Modality: MG Procedure: SCRN MAMM (CAD)W/HÉCTOR BILAT COMPARISON: Prior exam(s) dated November 21, 2023.. FINDINGS: TISSUE DENSITY: The breasts are heterogeneously dense, which may obscure small masses. Bilateral Breast Mammographic Findings: No significant masses, calcifications or other abnormalities are identified. No suspicious masses, areas of developing architectural distortion, or suspicious calcifications. There has been no significant interval change. BI/SCRN MAMM (CAD)W/HÉCTOR BILAT IMPRESSION: Stable bilateral screening mammogram. OVERALL FINAL ASSESSMENT BI-RADS 1: NEGATIVE. RECOMMENDATION: Routine annual follow-up in 1 Year Additional Recommendation none A letter with findings and recommendations will be mailed to the patient. Reading Location: [facility]
== END | disposition home or self-care (01) ==
LOC: OPBI 12:28
PROVIDERS: PCP Family Medicine; Referring Provider Family Medicine; Visit Provider Family Medicine
DX: Z12.31 Encounter for screening mammogram for malignant neoplasm of breast (principal)
CPT/HCPCS: 77063; 77067